=== PATIENT | male | born 1935 | race Caucasian/White ===

== ENCOUNTER → 2017-04-05 | Outpatient (CLI) | payer MEDICARE ==
[2017-04-05 15:41] LABS: Blood Urea Nitrogen 27 mg/dL (9-20); Non-African American GFR(MDRD) >60 (>60 ml/min/1.73 sqM)
--- NOTE | 2017-04-05 17:00 | CT ---
CT angiogram of the abdominal aorta with and without contrast HISTORY: Iliac artery aneurysm No comparisons Helical acquisition obtained through the abdominal aorta and pelvic vasculature following 100 cc Omni 350 IV. Three-dimensional reconstructions performed on an alternate workstation Lung bases are clear, no pleural or pericardial effusion. The descending aorta is patent, celiac axis, superior mesenteric artery, renal arteries, inferior mes enteric artery are patent. Aorta shows normal caliber, there is mild atheromatous change. The level o f the aortic bifurcation the aorta is somewhat ectatic measuring approximately 2.9 x 3 cm in diameter . The common iliac artery on the right measures approximately 3.9 cm in greatest dimension with some luminal plaque. Iliac artery and the left measures approximately 2.4 cm. External and internal iliac arteries are patent, mild ectasia of the right and left internal iliac artery measuring 1.5 cm. Commo n femoral arteries, proximal deep and superficial femoral arteries are patent. Extensive diverticular change noted incidentally within the sigmoid colon. Degenerative disc changes in the visualized spine. No pneumoperitoneum or retroperitoneal adenopathy. Small umbilical hernia co ntains fat. Cortical cyst associated with the right kidney measures 2.6 cm. The spleen shows a small focal area of enhancement in its upper aspect measuring 7 mm which is indeterminate on axial image 18 . Urinary bladder shows a somewhat thickened wall possibly due to chronic outlet obstruction. No pelv ic adenopathy or free fluid. 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 Splenic focus of enhancement as d escribed. Additional findings above. Diverticulosis.
== END | disposition home or self-care (01) ==
LOC: RADCTMAIN 14:22
PROVIDERS: ATTEND Thoracic Surgery (Cardiothoracic Vascular Surgery)
DX: I72.3 Aneurysm of iliac artery (principal)
CPT/HCPCS: 82565; 84520; 75635; 36415; Q9967

== ENCOUNTER → 2018-09-16 | Outpatient (CLI) | payer MEDICARE ==
--- NOTE | 2018-09-16 12:07 | CT ---
EXAMINATION TYPE: CT angio abdomen DATE OF EXAM: 09/16/2018 COMPARISON: 04/05/2017 HISTORY: Aneurysm of Iliac Artery CT DLP: 1617 mGycm CONTRAST: CTA abdominal aorta with 3-D reconstruction is performed and without and with IV Contrast, patient i njected with 100 mL of Isovue 370. Contrast CTA of abdominal aorta was performed from the lung apex through the base of the pelvis. 3- D reconstruction imaging obtained at a separate workstation. CONTRAST CT ABDOMEN AND PELVIS ABDOMINAL AORTA: Atheromatous and ectatic change of the abdominal aorta. Distal abdominal aorta is an eurysmal at 3.1 cm. Right common iliac artery is aneurysmal at 3.7 x 4.1 cm versus 3.5 x 3.7 cm with the left common iliac artery aneurysmal at 2.3 cm. Right internal iliac artery measures 1.4 cm in max imal dimension. LIVER/GB- No significant abnormality is seen. PANCREAS- No significant abnormality is seen. SPLEEN- No significant abnormality is seen. ADRENALS- No significant abnormality is seen. KIDNEYS/BLADDER-renal cystic changes are stable. BOWEL-stable diverticulosis of the colon. GENITAL ORGANS: No gross abnormality seen. LYMPH NODES- No greater than 1cm abdominal or pelvic lymph nodes are appreciated. OSSEOUS STRUCTURES- No significant abnormality is seen. OTHER- No significant abnormality is seen. IMPRESSION- 1. Mild progression of right common iliac artery aneurysm. 2. Mild abdominal aortic aneurysm distally. 3. Left common iliac artery aneurysm as described.
== END | disposition home or self-care (01) ==
LOC: RADCTMAIN 09:06
PROVIDERS: ATTEND Thoracic Surgery (Cardiothoracic Vascular Surgery)
DX: I72.3 Aneurysm of iliac artery (principal); I71.4 Abdominal aortic aneurysm, without rupture
CPT/HCPCS: 82565; 84520; 74175; 36415; Q9967

== ENCOUNTER → 2019-01-05 | Outpatient (CLI) | payer MEDICARE ==
--- NOTE | 2019-01-05 15:40 | CT ---
CT angiogram of the abdomen and pelvis HISTORY: Endoleak Acquisition obtained through the abdomen and pelvis pre- and postadministration of 100 cc Isovue-370 IV. Three-dimensional reconstructions performed on an alternate workstation. Correlation to prior exam CT angiogram of the abdomen 09/16/2018. DLP 1617 mGycentimeters Abdominal aortic iliac stent graft is present. Celiac axis, superior mesenteric artery, left renal ar teries are patent. Both limbs of the stent graft are patent, graft shows a bifurcation in the iliac l imb on the right into the internal and external iliac arteries which are patent. External iliac, comm on femoral, proximal deep and superficial femoral arteries are patent. The aneurysmal dilation of the common iliac artery on the right measures approximately 3.9 cm and on the left approximately 2.2 cm in greatest dimension infrarenal abdominal aorta measures only approximately 3.2 cm in greatest dimen justin near the level of the bifurcation. At this level there is some enhancement noted outside of the iliac limbs axial image 91. Inferior mesenteric artery is occluded. The lower pole of the right kidney does not enhance normally, the inferior right renal artery is occl uded proximally likely excluded from the stent graft. There is no ascites. Diverticular changes are e xtensive in the colon. Facet arthropathy, degenerative disc changes in the visualized spine. IMPRESSION: Findings compatible with patient's history of endoleak. 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 Additional findings above. Right common iliac artery aneu rysm shows a similar diameter as does the left common iliac artery aneurysm.
== END | disposition home or self-care (01) ==
LOC: RADCTMAIN 10:30
PROVIDERS: ATTEND Surgery
DX: I72.3 Aneurysm of iliac artery (principal); N28.0 Ischemia and infarction of kidney; T82.848A Pain due to vascular prosthetic devices, implants and grafts, initial encounter
CPT/HCPCS: 82565; 84520; 36415; 74174; Q9967

== ENCOUNTER → 2019-10-30 | Outpatient (CLI) | payer MEDICARE ==
--- NOTE | 2019-10-30 13:16 | CT ---
EXAMINATION TYPE: CT angio abdomen pelvis DATE OF EXAM: 10/30/2019 COMPARISON: CTA abdomen and pelvis January 05, 2019 HISTORY: Endo Leak CT DLP: 1722.8 mGycm, Automated Exposure Control for Dose Reduction was Utilized. CONTRAST: CTA scan of the abdomen and pelvis is performed without oral and without and with IV Contrast, patien t injected with 100 mL of Isovue 370. Stent graft protocol with 3-D reconstructed created and a works tation and reviewed FINDINGS: VASCULAR: Patent celiac artery, SMA, and bilateral single renal arteries with slight prominence at or igin of left renal artery redemonstrated. No significant stenosis is evident. There is redemonstratio n of aortobiiliac stent graft with additional stent grafts in the right internal/external iliac arter ies. [place] abdominal aorta measures up to 3.2 cm transversely axial image 32 unchanged in size from recent CT. There is more prominent aneurysm of the right common iliac artery measuring 3.8 x 3.5 cm i mage 45 not significantly changed from prior CT image 126. Small aneurysm of the distal left common i liac artery image 44 is unchanged from prior. There is patency of the stent graft without suspicious extraluminal contrast opacification. Persistent suspicious posterior lumbar vessels right before bifu rcation axial images 34 through 37 without convincing evidence of endoleak on current study versus pr ior. These vessels are less well opacified on current study which is slightly more delayed or less op acified versus prior CTA. There is poor patency of proximal GEM with improved opacification distally suggest retrograde filling. LUNG BASES: No significant abnormality is appreciated. LIVER/GB: No significant abnormality is appreciated. PANCREAS: No significant abnormality is seen. SPLEEN: No significant abnormality is seen. ADRENALS: No significant abnormality is seen. KIDNEYS: There is simple appearing 2.7 cm exophytic thin-walled cyst posteriorly right kidney midpole level axial image 24 redemonstrated. There is persistent diminished perfusion and cortical thinning anterior right kidney mid to lower pole level. Patient had an accessory small caliber right renal art andres on April 05, 2017 CT seen originating axial image 31 series 5 which is now likely occluded by new st ent graft. BOWEL: Scattered diverticula throughout the colon with prominent diverticulosis in the left and sigmo id colon.. PROSTATE/SEMINAL VESICLES: No gross abnormality seen. LYMPH NODES: No greater than 1cm abdominal or pelvic lymph nodes are appreciated. OSSEOUS STRUCTURES: Proximal multilevel spurring in the lower thoracic and upper lumbar spine. Facet arthropathy lower lumbar levels. OTHER: No significant additional abnormality is seen. IMPRESSION: Less well-visualized type II endoleak on current exam is suspected due to poor contrast b olus as there are 2 tiny posterior lumbar feeding vessels redemonstrated. Overall small AAA and large r right common iliac artery aneurysm are stable. Vascular ischemia/infarct of the anterior lower pole right kidney redemonstrated due to occluded accessory right renal artery. No significant change from prior study.
== END | disposition home or self-care (01) ==
LOC: RADCTMAIN 10:14
PROVIDERS: ATTEND Surgery
DX: I71.4 Abdominal aortic aneurysm, without rupture (principal); I72.3 Aneurysm of iliac artery; N28.0 Ischemia and infarction of kidney
CPT/HCPCS: 82565; 84520; 36415; 74174; Q9967

== ENCOUNTER → 2021-04-01 | Outpatient (CLI) | payer MEDICARE ==
--- NOTE | 2021-04-01 17:53 | US ---
EXAMINATION TYPE: US venous doppler duplex LE DATE OF EXAM: 04/01/2021 4:33 PM COMPARISON: None available. CLINICAL HISTORY: M79.669 Pain unspecified lower legs. Patient has right lower leg appearance of mult iple petechiae/hyperpigmentation and stated has pain in this area x 2 months. Patient stated has had revascularization/stents for aneurysms (See CT angiogram here). History of [employer], Femoral Artery aneu rysms. SIDE PERFORMED: Right TECHNIQUE: The lower extremity deep venous system is examined utilizing real time linear array sonog augie with graded compression, doppler sonography and color-flow sonography. 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 IMPRESSION: No evidence of bilateral lower extremity DVT. 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
== END | disposition home or self-care (01) ==
LOC: RADUSWWP 15:52
PROVIDERS: ATTEND Family Medicine
DX: I72.4 Aneurysm of artery of lower extremity (principal)
CPT/HCPCS: 93970